=== PATIENT | male | born 1990 | race Caucasian/White ===

== ENCOUNTER 2020-10-31 07:46 | Day surgery (SDC) | payer MEDICAID, OTHER ==
[2020-10-31] MEDS ORDERED: Sodium Chloride 0.9% 1,000 ML IV SCH (08:30)
[2020-10-31] MEDS ORDERED: Midazolam 1 MG/ML 2 ML SDV ONE (08:35)
[2020-10-31] MEDS ORDERED: fentaNYL 100 MCG/2 ML SDV ONE (08:35)
[2020-10-31] MEDS ORDERED: Propofol 200 MG/20 ML SDV ONE (08:35)
--- NOTE | 2020-10-31 10:46 | OR ---
DATE OF PROCEDURE: 10/31/2020 SURGEON: Inder Dickerson MD PROCEDURES: 1. Esophagogastroduodenoscopy. 2. Colonoscopy. FINDINGS: 1. Mild inflammation at GE junction concerning for reflux disease. 2. Bleeding hemorrhoid, internal. COMPLICATIONS: None. 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 PREOPERATIVE DIAGNOSIS: Anemia. POSTOPERATIVE DIAGNOSIS: Anemia. RISKS: Risks, benefits, alternatives and limitations including but not limited to infection, bleeding, perforation, false positives, false negatives and the possibility of indicated procedures were all explained to the patient who wished to proceed. PROCEDURE IN DETAIL: The patient was placed in left lateral decubitus position. EGD scope was introduced and advanced atraumatically to the second part of the duodenum. No evidence of duodenitis or ulceration. No old or new blood. In the stomach itself, there was no ulceration. The GE junction showed mild inflammation concerning for reflux disease. This was biopsied in all 4 quadrants using cold biopsy forceps. The air was removed from the stomach. The esophagus was inspected without abnormality. Digital rectal exam was performed without abnormality except for prominent internal hemorrhoids and blood was noted. The scope was then introduced and advanced atraumatically to the ileocecal valve. Photo was taken of the appendiceal orifice. Scope was brought back to the ascending, transverse, descending colon and retroflexed. No evidence of polyps. No masses. The only blood noted was at the identified hemorrhoid which was bleeding. This was subsequently banded x2. Prep was acceptable, approximately 95% of the luminal surface could be seen. Greater than 8 minutes was spent removing the scope. The patient tolerated the procedure well. Inder Dickerson MD /[id number]
== END 2020-10-31 11:14 | disposition home or self-care (01) ==
LOC: JP.SDS 07:46
PROVIDERS: ATTEND Surgery
DX: D64.9 Anemia, unspecified (principal); K64.8 Other hemorrhoids; E78.5 Hyperlipidemia, unspecified; K21.9 Gastro-esophageal reflux disease without esophagitis
CPT/HCPCS: 43239; 45378; 46221; J2250; J2704; J3010; J7030